=== PATIENT | female | born 1985 | race African-American/Black ===

== ENCOUNTER 2017-08-29 10:56 | Emergency (ER) | payer OTHER ==
[~2017-08-29] VITALS: Ht 162.6 cm; Wt 77.0 kg
[2017-08-29 10:59] VITALS: BP 139/65; PULSE 71; RESP 16; TEMP 98.4; O2SAT 99
--- NOTE | 2017-08-29 11:42 | PD ---
HPI Chief Complaint: Chest Pain Time Seen by Provider: 11:15 Travel History International Travel<30 days: No Contact w/Intl Traveler<30days: No Traveled to known affect area: No History of Present Illness HPI 32-year-old female presents to the emergency room for evaluation of intermittent palpitations and chest pressure for the past 3 days. Patient has had episodes similar to this in the past but it is never been so persistent. States every day for the past 3 days she has had anywhere from 1-4 episodes of substernal chest pressure that lasts anywhere from 1 minute to 15 minutes. When she is having the chest pressure she has associated shortness of breath like she can't take a deep enough breath in but otherwise there is no shortness of breath. Denies radiation of symptoms, nausea, vomiting, lightheadedness, or dizziness. Denies history of cardiac or lung disease. Last menstrual cycle was 2 weeks ago. Denies possibility of . Patient reports history of panic attacks that have felt similar to this in the past but they have never lasted this long. She denies any specific stressors in her life. States she would've come in earlier but she could not get help babysitting her children. PFSH Past Medical History Hx Anticoagulant Therapy: No Cardiovascular Problems: No Chemotherapy: No Cerebrovascular Accident: No Diabetes: No Respiratory: No ?: Not LMP: tubal ligation Past Surgical History Hysterectomy: No Social History Tobacco Use: No Review of Systems Except as stated in HPI: all other systems reviewed are Neg Physical Exam Narrative GENERAL: Well-nourished, well-developed female in no acute distress. Afebrile. Ambulatory. Resting comfortably in bed. SKIN: Focused skin assessment warm/dry. HEAD: Normocephalic. EYES: No scleral icterus. No injection or drainage. NECK: Supple, trachea midline. No JVD or lymphadenopathy. CARDIOVASCULAR: Regular rate and rhythm without murmurs, gallops, or rubs. RESPIRATORY: Breath sounds equal bilaterally. No accessory muscle use. No crackles, rales, wheezes, or rhonchi. PSYCHIATRIC: No delusional thought processes. No hallucinations. Good mood. Normal affect. Data Data Last Documented VS Vital Signs Date Time Temp Pulse Resp B/P (MAP) Pulse Ox O2 Delivery O2 Flow Rate FiO2 08/29/17 11:50 100 Room Air 08/29/17 11:50 18 08/29/17 10:59 98.4 71 Orders Orders Electrocardiogram (08/29/17 11:24) Ckmb (Isoenzyme) Profile (08/29/17 11:24) Complete Blood Count With Diff (08/29/17 11:24) Comprehensive Metabolic Panel (08/29/17 11:24) D-Dimer (08/29/17 11:24) Troponin I (08/29/17 11:24) Chest, Single Ap (08/29/17 11:24) Ecg Monitoring (08/29/17 11:24) Bilateral Bp Monitoring (08/29/17 11:24) Iv Access Insert/Monitor (08/29/17 11:24) Oximetry (08/29/17 11:24) Oxygen Administration (08/29/17 11:24) Labs Laboratory Tests Test 08/29/17 11:28 White Blood Count 6.6 TH/MM3 Red Blood Count 4.31 MIL/MM3 Hemoglobin 12.3 GM/DL Hematocrit 37.1 % Mean Corpuscular Volume 86.1 FL Mean Corpuscular Hemoglobin 28.6 PG Mean Corpuscular Hemoglobin Concent 33.1 % Red Cell Distribution Width 13.6 % Platelet Count 221 TH/MM3 Mean Platelet Volume 8.9 FL Neutrophils (%) (Auto) 61.0 % Lymphocytes (%) (Auto) 30.7 % Monocytes (%) (Auto) 4.8 % Eosinophils (%) (Auto) 3.1 % Basophils (%) (Auto) 0.4 % Neutrophils # (Auto) 4.0 TH/MM3 Lymphocytes # (Auto) 2.0 TH/MM3 Monocytes # (Auto) 0.3 TH/MM3 Eosinophils # (Auto) 0.2 TH/MM3 Basophils # (Auto) 0.0 TH/MM3 CBC Comment DIFF FINAL Differential Comment D-Dimer Quantitative (PE/DVT) 0.24 MG/L FEU Blood Urea Nitrogen 11 MG/DL Creatinine 0.72 MG/DL Random Glucose 64 MG/DL Total Protein 7.2 GM/DL Albumin 3.7 GM/DL Calcium Level 8.7 MG/DL Alkaline Phosphatase 66 U/L Aspartate Amino Transf (AST/SGOT) 19 U/L Alanine Aminotransferase (ALT/SGPT) 22 U/L Total Bilirubin 0.9 MG/DL Sodium Level 139 MEQ/L Potassium Level 3.7 MEQ/L Chloride Level 103 MEQ/L Carbon Dioxide Level 26.0 MEQ/L Anion Gap 10 MEQ/L Estimat Glomerular Filtration Rate 113 ML/MIN Total Creatine Kinase 92 U/L Troponin I LESS THAN 0.02 NG/ML MDM Medical Decision Making Medical Screen Exam Complete: Yes Emergency Medical Condition: Yes Medical Record Reviewed: Yes Differential Diagnosis CAD, pneumonia, anxiety, panic attacks, SVT Narrative Course 32-year-old otherwise healthy female presents to the emergency room for evaluation of intermittent palpitations and chest pressure for the past 3 days. IV access established and basic labs obtained. EKG shows sinus rhythm with a rate of 69 beats per minute. No ST changes. Patient is resting comfortably and in no acute distress. Increase work of breathing. Lungs sounds clear and equal bilaterally. Vital signs stable. CBC and CMP completely unremarkable. D -dimer and troponin are within normal limits. Chest x-ray is negative. Patient may have SVT or palpitations may be due to panic disorder. She is reassured told to follow with the primary care physician for outpatient Holter monitor if symptoms persist. No indications for admission at this time. She is stable for outpatient follow-up. She understands and agrees to plan. Diagnosis Primary Impression: Intermittent palpitations Referrals: [facility] Primary Care Physician Additional Instructions: Rest and drink plenty of fluids. Follow-up with a primary care physician for heart monitor. Return to the emergency room for worsening symptoms. Disposition: 01 DISCHARGE HOME Condition: Stable Vani Beard Aug 29, 2017 11:42
[2017-08-29 11:50] VITALS: RESP 18; O2SAT 100
--- NOTE | 2017-08-29 12:06 | RADRPT ---
EXAM DATE/TIME: 08/29/2017 11:48 [facility] COMPARISON: No previous studies available for comparison. INDICATIONS : Short of Breath and pressure MEDICAL HISTORY : None. SURGICAL HISTORY : None. ENCOUNTER: Initial ACUITY: 1 week PAIN SCORE: 0/10 LOCATION: Bilateral chest FINDINGS: A single view of the chest demonstrates the lungs to be symmetrically aerated without evidence of mas s, infiltrate or effusion. The cardiomediastinal contours are unremarkable. Osseous structures are intact. CONCLUSION: 1. No acute cardiopulmonary disease. Eric Crandall MD on August 29, 2017 at 12:03 Board Certified Radiologist. This report was verified electronically.
[2017-08-29 12:08] LABS: BASOPHIL % 0.4 % (0.0-2.0); EOSINOPHIL # 0.2 TH/MM3 (0-0.4); EOSINOPHIL % 3.1 % (0.0-4.0); HEMATOCRIT 37.1 % (35.0-46.0); LYMPH % 30.7 % (9.0-44.0); MEAN CELL VOLUME 86.1 FL (80.0-100.0); MEAN CORPUSCULAR HEMOGLOBIN 28.6 PG (27.0-34.0); MEAN CORPUSCULAR HGB CONC 33.1 % (32.0-36.0); MONO % 4.8 % (0.0-8.0); PLATELET COUNT 221 TH/MM3 (150-450); RED BLOOD COUNT 4.31 MIL/MM3 (4.00-5.30); RED CELL DISTRIBUTION WIDTH 13.6 % (11.6-17.2); WHITE BLOOD COUNT 6.6 TH/MM3 (4.0-11.0)
[2017-08-29 12:12] LABS: HEMO FLAGS DIFF FINAL
[2017-08-29 12:47] LABS: ALKALINE PHOSPHATASE 66 U/L (45-117); ALT (GPT) 22 U/L (10-53); ANION GAP 10 MEQ/L (5-15); AST (GOT) 19 U/L (15-37); BLOOD UREA NITROGEN 11 MG/DL (7-18); CHLORIDE 103 MEQ/L (98-107); GLOMERULAR FILTRATION RATE 113 ML/MIN (>89); POTASSIUM 3.7 MEQ/L (3.5-5.1); SODIUM (NA) 139 MEQ/L (136-145); TOTAL BILIRUBIN ADULT 0.9 MG/DL (0.2-1.0)
[2017-08-29 12:48] LABS: CREATINE KINASE 92 U/L (26-192)
--- NOTE | 2017-08-30 08:44 | EKG ---
Date Performed: 08/29/2017 Time Performed: 11:20:56 PTAGE: 32 years EKG: Sinus rhythm WITH SINUS ARRHYTHMIA NORMAL ECG NO PREVIOUS TRACING DOCTOR: Raphael Hsieh Interpretating Date/Time 08/30/2017 08:43:26
== END 2017-08-29 13:55 | disposition home or self-care (01) ==
LOC: NEPD 10:56
DX: R00.2 Palpitations (principal); R07.89 Other chest pain; R06.02 Shortness of breath
CPT/HCPCS: 71010; 80053; 82550; 84484; 85025; 85379; 93005